=== PATIENT | female | born 1945 | race African-American/Black ===

== ENCOUNTER 2020-02-04 15:35 | Emergency (ER) | payer OTHER ==
[2020-02-04] MEDS ORDERED: IPRATROPIUM BROM 0.5MG/2.5ML ONE (16:23)
[2020-02-04] MEDS ORDERED: ALBUTEROL 2.5 MG/3 ML NEB SOL ONE (16:24)
[2020-02-04 16:31] LABS: Absolute Lymphocytes (CBC) 1.8 K/uL (0.7-4.9); Basophils % 0.3 % (0-1.3); Hematocrit 25.1 % (36.0-45.0); Lymphocytes % 27.3 % (15.3-44.8); MPV 9.6 fL (7.6-11.3); Protime INR 1.2; RBC Red Blood Cell Count 3.17 M/uL (3.86-4.86)
[2020-02-04 16:48] LABS: ALT/SGPT 34 U/L (12-78); AST/SGOT 31 U/L (15-37); Albumin 3.7 g/dL (3.4-5.0); Alkaline Phosphatase 101 U/L (45-117); BUN Blood Urea Nitrogen 17 mg/dL (7-18); Bicarbonate 26 mmol/L (21-32); Bilirubin Direct < 0.1 mg/dL (0-0.2); Bilirubin Total 0.2 mg/dL (0.2-1.0); Glucose Level 97 mg/dL (74-106); Magnesium 2.8 mg/dL (1.8-2.4); NT PRO-BNP 81 pg/mL (<125); Potassium 5.1 mmol/L (3.5-5.1); Protein, Total 7.9 g/dL (6.4-8.2); Sodium Level 138 mmol/L (136-145); Troponin (Emerg Dept Use Only) 0.03 ng/mL (0.0-0.045)
--- NOTE | 2020-02-04 16:53 | RAD REPORT ---
EXAM DESCRIPTION: Marlon Single View02/04/2020 4:30 pm CLINICAL HISTORY: sob COMPARISON: none FINDINGS: The lungs appear clear of acute infiltrate. The heart is normal size IMPRESSION: No acute abnormalities displayed
--- NOTE | 2020-02-04 17:15 | ER ---
Nurse's Notes [facility] Name: Carol Casey Age: 74 yrs Sex: Female : 1945 Arrival Date: 02/04/2020 Time: 15:39 Bed 14 Private MD: Diagnosis: Shortness of breath;Wheezing Presentation: 02/03 15:48 Chief complaint: Patient states: Wheezing since this morning, denies shortness of jl7 breath. Audible wheezing noted in triage. Coronavirus screen: Client denies travel out of the [place] in the last 14 days. At this time, the client does not indicate any symptoms associated with coronavirus-19. Ebola Screen: No symptoms or risks identified at this time. Initial Sepsis Screen: Does the patient meet any 2 criteria? No. Patient's initial sepsis screen is negative. Does the patient have a suspected source of infection? No. Patient's initial sepsis screen is negative. Risk Assessment: Do you want to hurt yourself or someone else? Patient reports no desire to harm self or others. Onset of symptoms was February 04, 2020. Care prior to arrival: None. Transition of care: patient was not received from another setting of care. 15:48 Method Of Arrival: Ambulatory jl7 15:48 Acuity: HAKAN 3 jl7 Historical: - Allergies: 15:51 No Known Allergies; jl7 - Home Meds: 15:51 amlodipine oral [Active]; Lisinopril Oral [Active]; gabapentin oral oral [Active]; jl7 Vitamin B-12 Oral [Active]; - PMHx: 15:51 Hypertension; neuropathy; jl7 - PSHx: 15:51 Mastectomy, Left; jl7 - Immunization history:: Adult Immunizations not up to date. - Social history:: Smoking status: Patient denies any tobacco usage or history of. Screenin:19 Abuse screen: Denies threats or abuse. Denies injuries from another. Nutritional ca1 screening: No deficits noted. Tuberculosis screening: No symptoms or risk factors identified. Fall Risk IV access (20 points). Assessment: 16:19 General: Appears in no apparent distress. comfortable, Behavior is calm, cooperative, ca1 appropriate for age. Pain: Denies pain. Neuro: Level of Consciousness is awake, alert, obeys commands, Oriented to person, place, time, situation. Cardiovascular: Heart tones S1 S2 present Capillary refill < 3 seconds Patient's skin is warm and dry. Rhythm is sinus rhythm. Respiratory: Airway is patent Respiratory effort is even, unlabored, Respiratory pattern is regular, symmetrical, Breath sounds with wheezes bilaterally. GI: Abdomen is round non-distended, Bowel sounds present X 4 quads. Abd is soft and non tender X 4 quads. : No signs and/or symptoms were reported regarding the genitourinary system. EENT: No signs and/or symptoms were reported regarding the EENT system. Derm: Skin is intact, is healthy with good turgor, Skin is. Musculoskeletal: Circulation, motion, and sensation intact. Capillary refill < 3 seconds, Swelling present in right leg and left leg. 17:35 Reassessment: Patient appears in no apparent distress at this time. Patient and/or ca1 family updated on plan of care and expected duration. Pain level reassessed. Patient is alert, oriented x 3, equal unlabored respirations, skin warm/dry/pink. Patient states feeling better. Patient states symptoms have improved. 17:54 Reassessment: Prescriptions called-in to [facility] pharmacy in [place], [place] per pt's aa5 request. . Vital Signs: 15:48 BP 170 / 71; Pulse 87; Resp 20; Temp 98.2; Pulse Ox 98% ; Pain 0/10; jl7 17:35 BP 124 / 73; Pulse 84; Resp 15 S; Pulse Ox 98% on R/A; ca1 ED Course: 15:39 Patient arrived in ED. ag5 15:50 Triage completed. jl7 15:51 Arm band placed on right wrist. jl7 15:57 Adolfo Marcelo PA is PHCP. jr8 15:57 Ok Trejo MD is Attending Physician. jr8 15:59 Ana Calles, FERCHO is Primary Nurse. ca1 16:18 No provider procedures requiring assistance completed. Initial lab(s) drawn, by or, ca1 sent to lab. Inserted saline lock: 20 gauge in right antecubital area, using aseptic technique. Blood collected. 16:19 Patient has correct armband on for positive identification. Placed in gown. Bed in low ca1 position. Call light in reach. Side rails up X2. teletypesetter monitor on. Pulse ox on. NIBP on. Warm blanket given. Head of bed elevated. 16:26 EKG done, by ED staff, reviewed by Adolfo ANAND. adis 16:31 XRAY Chest (1 view) In Process Unspecified. EDMS 16:45 Notified Nurse Practitioner and/or Physician Hat Stock Laminating Machine Operator of a critical lab result(s), aa5 Hemoglobin 7.7. 17:58 IV discontinued, intact, bleeding controlled, No redness/swelling at site. Pressure ca1 dressing applied. Administered Medications: 16:17 Drug: Albuterol - atroVENT (3:1) (2.5 mg - 0.5 mg) 3 ml Route: Nebulizer; ca1 17:36 Follow up: Response: No adverse reaction; Marked relief of symptoms ca1 Outcome: 17:14 Discharge ordered by . charline 17:58 Discharged to home ambulatory. ca1 17:58 Condition: stable 17:58 Discharge instructions given to patient, Instructed on discharge instructions, follow up and referral plans. medication usage, Demonstrated understanding of instructions, follow-up care, medications, Prescriptions given X 2. 17:58 Patient left the ED. ca1 Signatures: Dispatcher [employer] EDMS Adrianna Lindquist, RN RN aaAdolfo Carpenter PA PA jrAndres Dumont RN RN jl7 Ana Calles RN RN ca1 Agata Whitaker ag5
--- NOTE | 2020-02-04 17:15 | EDPHYS ---
Physician Documentation [facility] Name: Carol Casey Age: 74 yrs Sex: Female : 1945 Arrival Date: 02/04/2020 Time: 15:39 Bed 14 Private MD: ED Physician Ok Trejo HPI: 02/03 16:11 This 74 yrs old Female presents to ER via Ambulatory with complaints of Breathing jr8 Difficulty. 16:11 The patient has shortness of breath at rest. Onset: The symptoms/episode began/occurred jr8 acutely, today. Duration: The symptoms are continuous. The patient's shortness of breath has no apparent modifying factors. Associated signs and symptoms: The patient has no apparent associated signs or symptoms. Severity of symptoms: At their worst the symptoms were mild in the emergency department the symptoms are unchanged. It is unknown whether or not the patient has had similar symptoms in the past. The patient has not recently seen a physician. Patient stated that every time she has allergies she gets wheezing. Today started with wheezing. Denies CP or other s/s . Historical: - Allergies: 15:51 No Known Allergies; jl7 - Home Meds: 15:51 amlodipine oral [Active]; Lisinopril Oral [Active]; gabapentin oral oral [Active]; jl7 Vitamin B-12 Oral [Active]; - PMHx: 15:51 Hypertension; neuropathy; jl7 - PSHx: 15:51 Mastectomy, Left; jl7 - Immunization history:: Adult Immunizations not up to date. - Social history:: Smoking status: Patient denies any tobacco usage or history of. ROS: 16:11 Eyes: Negative for injury, pain, redness, and discharge, ENT: Negative for injury, jr8 pain, and discharge, Neck: Negative for injury, pain, and swelling, Cardiovascular: Negative for chest pain, palpitations, and edema, Abdomen/GI: Negative for abdominal pain, nausea, vomiting, diarrhea, and constipation, Back: Negative for injury and pain, MS/Extremity: Negative for injury and deformity, Skin: Negative for injury, rash, and discoloration, Neuro: Negative for headache, weakness, numbness, tingling, and seizure. 16:11 Respiratory: Positive for shortness of breath, wheezing. Exam: 16:11 Eyes: Pupils equal round and reactive to light, extra-ocular motions intact. Lids and jr8 lashes normal. Conjunctiva and sclera are non-icteric and not injected. Cornea within normal limits. Periorbital areas with no swelling, redness, or edema. ENT: Nares patent. No nasal discharge, no septal abnormalities noted. Tympanic membranes are normal and external auditory canals are clear. Oropharynx with no redness, swelling, or masses, exudates, or evidence of obstruction, uvula midline. Mucous membranes moist. Neck: Trachea midline, no thyromegaly or masses palpated, and no cervical lymphadenopathy. Supple, full range of motion without nuchal rigidity, or vertebral point tenderness. No Meningismus. Abdomen/GI: Soft, non-tender, with normal bowel sounds. No distension or tympany. No guarding or rebound. No evidence of tenderness throughout. Back: No spinal tenderness. No costovertebral tenderness. Full range of motion. Skin: Warm, dry with normal turgor. Normal color with no rashes, no lesions, and no evidence of cellulitis. MS/ Extremity: Pulses equal, no cyanosis. Neurovascular intact. Full, normal range of motion. Neuro: Awake and alert, GCS 15, oriented to person, place, time, and situation. Cranial nerves II-XII grossly intact. Motor strength 5/5 in all extremities. Sensory grossly intact. Cerebellar exam normal. Normal gait. 16:11 Cardiovascular: Rate: normal, Rhythm: regular, Pulses: Pulses are 2+ in right radial artery and left radial artery. Heart sounds: murmur, systolic, grade 3 over 6, Left Sternal Boarder, Edema: is not appreciated, JVD: is not appreciated. 16:11 Respiratory: the patient does not display signs of respiratory distress, Respirations: normal, symetrical, no use of accessory muscles, no grunting, no evidence of nasal flaring, no prolonged exhalations, no pursed lip breathing, no retractions, no shallow respirations, no splinting, no tachypnea, Breath sounds: wheezing: expiratory that is mild, is heard in the right upper lobe and left upper lobe. Vital Signs: 15:48 BP 170 / 71; Pulse 87; Resp 20; Temp 98.2; Pulse Ox 98% ; Pain 0/10; jl7 17:35 BP 124 / 73; Pulse 84; Resp 15 S; Pulse Ox 98% on R/A; ca1 MDM: 15:58 Patient medically screened. jr8 17:11 Data reviewed: vital signs, nurses notes, lab test result(s), EKG, radiologic studies, jr plain films. Data interpreted: Pulse oximetry: on room air is 98 %. Interpretation: normal. Counseling: I had a detailed discussion with the patient and/or guardian regarding: the historical points, exam findings, and any diagnostic results supporting the discharge/admit diagnosis, lab results, radiology results, the need for outpatient follow up, a family practitioner, to return to the emergency department if symptoms worsen or persist or if there are any questions or concerns that arise at home. ED course: Patient feeling better. Questioned patient about her H/H. Stated that she has history of iron deficiency anemia and usually requires iron transfusions. Would call her doctor and schedule for another transfusion. Patient otherwise stated that she feels better. Will put her on prednisone for a few days . 02/03 16:05 Order name: Basic Metabolic Panel; Complete Time: 16: [facility] 02/03 16:05 Order name: CBC with Diff; Complete Time: 06:05 02/03 16:05 Order name: LFT's; Complete Time: 16: 02/03 16:05 Order name: Magnesium; Complete Time: 16: 02/03 16:05 Order name: NT PRO-BNP; Complete Time: 16: 02/03 16:05 Order name: PT-INR; Complete Time: 16: 02/03 16:05 Order name: Troponin (emerg Dept Use Only); Complete Time: 16: [facility] 02/03 16:05 Order name: XRAY Chest (1 view); Complete Time: 16:58 02/03 16:05 Order name: EKG; Complete Time: 16:06 02/03 16:05 Order name: Cardiac monitoring; Complete Time: 16: 02/03 16:05 Order name: EKG - Nurse/Tech; Complete Time: 16:02/03 16:05 Order name: IV Saline Lock; Complete Time: 16: 02/03 16:43 Order name: CBC Smear Scan; Complete Time: 06:05 EDMS 02/03 16:05 Order name: Labs collected and sent; Complete Time: 16:02/03 16:05 Order name: O2 Per Protocol; Complete Time: 16:22 8 02/03 16:05 Order name: O2 Sat Monitoring; Complete Time: 16: Administered Medications: 16:17 Drug: Albuterol - atroVENT (3:1) (2.5 mg - 0.5 mg) 3 ml Route: Nebulizer; ca1 17:36 Follow up: Response: No adverse reaction; Marked relief of symptoms ca1 Disposition: 18:08 Co-signature as Attending Physician, Ok Trejo MD. rn Disposition: 02/04/20 17:14 Discharged to Home. Impression: Shortness of breath, Wheezing. - Condition is Stable. - Discharge Instructions: How to Use an Inhaler, Bronchospasm, Adult, Shortness of Breath. - Prescriptions for Medrol (Reji) 4 mg Oral Tablets, Dose Pack - take 1 tablet by ORAL route as directed - follow package instructions; 1 packet. Albuterol Sulfate 90 mcg/actuation - inhale 1-2 puff by INHALATION route every 4-6 hours; 1 Inhaler. - Medication Reconciliation Form, Thank You Letter, Antibiotic Education, Prescription Opioid Use form. - Follow up: Private Physician; When: 2 - 3 days; Reason: Recheck today's complaints, Continuance of care, Re-evaluation by your physician. - Problem is new. - Symptoms have improved. Signatures: Dispatcher [employer] EDOk Donahue MD MD rn Roszak, Josh, PA PA jr8 Andres Buenrostro RN RN jl7 Ana Calles RN RN ca1 Corrections: (The following items were deleted from the chart) 17:58 17:14 02/04/2020 17:14 Discharged to Home. Impression: Shortness of breath; Wheezing. ca1 Condition is Stable. Forms are Medication Reconciliation Form, Thank You Letter, Antibiotic Education, Prescription Opioid Use. Follow up: Private Physician; When: 2 - 3 days; Reason: Recheck today's complaints, Continuance of care, Re-evaluation by your physician. Problem is new. Symptoms have improved. jr8
[2020-02-04 17:36] LABS: Blood Morphology Comment NOTED (NOT SEEN); Platelet Estimate DECR; Urine White Blood Cell Casts OK
[2020-02-04 17:37] LABS: Anisocytosis 1+; Polychromasia SLIGHT
[2020-02-09 14:54] VITALS: TEMP 98.2; O2SAT 98
[2020-02-09 14:56] VITALS: BP 124/73
== END 2020-02-04 17:58 | disposition home or self-care (01) ==
LOC: ER 15:35
DX: R06.2 Wheezing (principal); I10 Essential (primary) hypertension
CPT/HCPCS: 36415; 71045; 80048; 80076; 83735; 83880; 84484; 85025; 85610; 93005; 99285